=== PATIENT | female | born 2000 | race Caucasian/White ===

== ENCOUNTER 2021-03-16 00:38 | Emergency (ER) | payer SELFPAY ==
[~2021-03-16] VITALS: Ht 165.1 cm; Wt 65.9 kg
[2021-03-16 00:42] VITALS: TEMP 98.5
[2021-03-16 01:14] LABS: BASO # 0.1 (0.0-0.2); BASO % 0.9 % (0.0-2.0); EOS # 0.4 (0.0-0.7); EOS % 4.7 % (0-4.0); GRAN # 4.5 (1.4-6.5); HEMATOCRIT 39.5 % (35.0-45.0); HEMOGLOBIN 13.7 g/dl (12.0-15.0); LYMPH # 3.4 (1.2-3.4); LYMPH % 36.6 % (20.0-51.0); MEAN CELL VOLUME 91 fl (80.0-95.0); MEAN CORPUSCULAR HEMOGLOBIN 32 pg (26.0-32.0); MEAN CORPUSCULAR HGB CONC 35 g/dl (33.0-37.0); MEAN PLATELET VOLUME 10.3 fl (7.4-10.4); MONO # 0.9 (0.1-0.6); MONO % 9.6 % (1.7-9.3); PLATELET COUNT 252 K/mm3 (130-400); RED BLOOD COUNT 4.34 M/mm3 (4.10-5.30); REDCELL DISTRIBUTION WIDTH-CV 11.9 % (11.5-14.5)
[2021-03-16 01:25] LABS: CALCIUM 9.1 mg/dL (8.4-10.2); CREATININE, serum 0.74 (0.52-1.25); POTASSIUM 3.7 mmol/L (3.4-5.0)
[2021-03-16 01:56] LABS: TSH w REFLEX 4.07 uIU/mL (0.465-4.680)
[2021-03-16] MEDS ORDERED: PREDNISONE50 MG PO (02:32)
[2021-03-16 02:49] VITALS: BP 118/80; PULSE 101
== END 2021-03-16 02:54 | disposition home or self-care (01) ==
LOC: COL.ER 00:38
PROVIDERS: Emergency Medicine
DX: R21 Rash and other nonspecific skin eruption (principal); R60.0 Localized edema
CPT/HCPCS: J0171; J1200; J2930; J7120